=== PATIENT | male | born 1995 | race Caucasian/White ===

== ENCOUNTER 2018-06-20 13:28 | Emergency (ER) | payer MEDICAID ==
[~2018-06-20] VITALS: Ht 182.9 cm; Wt 72.8 kg
[2018-06-20] MEDS ORDERED: dexamethasone sod phosphate 10mg/ml inj PO STA (14:33)
[2018-06-20] MEDS ORDERED: TAM75C PO (14:33)
[2018-06-20 14:46] VITALS: BP 121/72
== END 2018-06-20 14:54 | disposition home or self-care (01) ==
LOC: ER 13:29
DX: B34.9 Viral infection, unspecified (principal); J02.9 Acute pharyngitis, unspecified; Z88.1 Allergy status to other antibiotic agents
CPT/HCPCS: 87081; 87880; 99283; J1100